=== PATIENT | female | born 1985 | race Caucasian/White ===

== ENCOUNTER 2017-09-18 06:21 | Day surgery (SDC) | payer BC ==
[~2017-09-18 06:21] MED LIST: ACETAMINOPHEN 1,000 MG/100 ML BTL IV ONE; CEFAZOLIN 2 Gram 2 GM/50 ML BAG IVPB ONE; FAMOTIDINE 20MG TABLET PO ONE; MECLIZINE 25 MG TABLET PO ONE; METOCLOPRAMIDE 10 MG TABLET PO ONE
[2017-09-18] MEDS ORDERED: OXYCODONE HCL/APAP 5MG/325MG TABLET PO ONE (06:22)
[2017-09-18] MEDS ORDERED: HYDROMORPHONE HCL 2 MG/ML VIAL IV ONE ×2 (06:22)
[2017-09-18] MEDS ORDERED: DEXAMETHASONE 4 MG/ML 1ML VIAL IVP ONE (06:22)
[2017-09-18] MEDS ORDERED: MIDAZOLAM HCL 2MG/2ML VIAL IV ONE (06:22)
[2017-09-18] MEDS ORDERED: ROCURONIUM BROMIDE 50MG/5ML VIAL IV ONE (06:22)
[2017-09-18] MEDS ORDERED: PROPOFOL 10 MG/ML VIAL IV ONE (06:22)
[2017-09-18] MEDS ORDERED: LIDOCAINE 2% MDV (20MG/ML) 20ML VIAL IV ONE (06:22)
[2017-09-18] MEDS ORDERED: ONDANSETRON HCL IV 4 MG/2 ML VIAL IVP ONE (06:22)
[2017-09-18] MEDS ORDERED: KETOROLAC 30 MG/ML VIAL IVP ONE (06:22)
[2017-09-18] MEDS ORDERED: SEVOFLURANE 250 ML INH ONE (06:22)
[2017-09-18] MEDS ORDERED: FENTANYL PF 0.25MG/5ML AMPUL IV ONE (06:22)
[2017-09-18] MEDS ORDERED: LIDOCAINE 1% W/EPI 1:200,000 MPF 30ML SQ ONE (06:22)
[2017-09-18 06:45] LABS: HEMATOCRIT 44.3 % (35.0-47.0); HEMOGLOBIN 14.7 gm/dl (11.6-16.0)
[2017-09-18] MEDS ORDERED: ONDANSETRON HCL IV 4 MG/2 ML VIAL IVP PRN (12:18)
[2017-09-18] MEDS ORDERED: HYDROCODONE/APAP 5/325MG TABLET PO PRN (12:18)
[2017-09-18] MEDS ORDERED: DIAZEPAM 5 MG TABLET PO PRN (12:18)
[2017-09-18] MEDS ORDERED: HYDROMORPHONE HCL 2 MG/ML VIAL IVP PRN ×2 (12:18→12:19)
[2017-09-18] MEDS: DIAZEPAM 5MG/ML **10ML VIAL IVP PRN ×2 (13:08→20:48)
[2017-09-18] MEDS: RINGERS SOLUTION,LACTATED 1,000 ML IV SCH ×4 (16:17→22:24)
[2017-09-18] MEDS: HYDROCODONE/APAP 5/325MG TABLET PO PRN (18:11)
[2017-09-19] MEDS: RINGERS SOLUTION,LACTATED 1,000 ML IV SCH ×2 (03:18→05:06)
[2017-09-19] MEDS: HYDROCODONE/APAP 5/325MG TABLET PO PRN ×2 (03:28→13:07)
[2017-09-19] MEDS ORDERED: BUSPIRONE 5 MG TABLET PO SCH (10:00)
[2017-09-19] MEDS ORDERED: ENOXAPARIN 40 MG/0.4 ML SYR SQ SCH (10:00)
--- NOTE | 2017-09-19 12:30 | Operative Note ---
DATE OF SURGERY: 09/18/2017 PREOPERATIVE DIAGNOSES: 1. Massive weight loss. 2. History of morbid obesity. 3. Chronic abdominal panniculitis secondary to #1 and #2. POSTOPERATIVE DIAGNOSES: 1. Massive weight loss. 2. History of morbid obesity. 3. Chronic abdominal panniculitis secondary to #1 and #2. OPERATION: Panniculectomy with abdominal wall plication. Surgeon: Trevor Landon MD Anesthesia: General. Estimated Blood Loss: 200 mL DRAINS: 15 round Antonio. SPECIMENS: 2600 g of total tissue, about 200 mL of aspirate from the hips. PROCEDURE: The patient and mother were interviewed preoperatively. The operative plan was reviewed. She as marked in the standing position. Questions were answered. She was then taken to the operating room with PDS stockings. After induction of uncomplicated general anesthesia and all pressure points well padded and protected, we prepped and draped in the usual sterile manner. We circumscribed her umbilicus with a 15 blade leaving a well-vascularized stalk. We then incised along the inferior margin just through the dermis sharply and then used cautery to dissect to the suprafascial plane. Hemostasis of the vessels was obtained using cautery and direct suture ligation. We then raised the skin flap in a suprafascial plane leaving a layer of subcu to help reduce the instance of seroma all the way to the xiphoid and costal margins. We then plicated from her xiphoid all the way to her pubic tubercle. This was done with a looped 0 PDS. We then placed 20 mL of 0.5% Marcaine with epinephrine in a subfascial plane for a block. After completion of the plication, we sat her up at about 45 degrees and proceeded with skin resection. We then closed temporarily over the drain which we secured with 3-0 nylon advancing lateral to medial. We made small adjustments to the skin to get the scar as low and symmetrical as possible and had appropriate tension. Once this was complete, we closed in 2 layers using Infrasorb dissolvable mirna every 0.5 cm and then running subcuticular 3-0 Monocryl. We then marked out the umbilicus in the midline at a level just above the anterior superior iliac spine. A small ellipse was excised in this area and as expected, the umbilicus was directly beneath. It was then secured using Monocryl. It should be noted that we did a little bit of liposuction on both hips to help smooth the transition from hip to waist. Sterile dressings were applied. She tolerated the procedure well without complication. TRENT
== END 2017-09-19 13:40 | disposition home or self-care (01) ==
LOC: SUR 06:21 → MEDSURG 11:39 → SUR 09-19 13:40
PROVIDERS: ATTEND Plastic Surgery
DX: E65 Localized adiposity (principal); R63.4 Abnormal weight loss
CPT/HCPCS: 15830; 15847; 00802; 85018; 85014; 81025; J1885; J2405; J1170; J0690; J3360; J1650; J7120

== ENCOUNTER 2018-10-20 16:09 | Emergency (ER) | payer BC | END 2018-10-20 16:33 | disposition left against medical advice (07) | LOC: ER 16:09 | DX: Z53.20 Procedure and treatment not carried out because of patient's decision for unspecified reasons (principal) ==